=== PATIENT | male | born 1990 | race Two or more races ===

== ENCOUNTER 2021-08-23 22:49 | Emergency (ER) | payer SELFPAY ==
[~2021-08-23] VITALS: Ht 167.6 cm; Wt 68.9 kg
[2021-08-24] MEDS ORDERED: LORazepam 2MG/ML-1ML VIAL IM ONE
[2021-08-24 00:01] LABS: Basophils # (auto) 0.1 10 ^3/uL (0-0.2); Basophils % (auto) 1.2 % (0.0-2.0); Eosinophils # (auto) 0 10 ^3/uL (0-0.8); Eosinophils % (auto) 0.3 % (0.0-7.0); Hematocrit 48.4 % (41.0-53.0); Hemoglobin 17.4 g/dL (13.5-17.5); Lymphocytes # (auto) 1.2 10 ^3/uL (0.4-5.4); Lymphocytes % (auto) 15.5 % (10.0-50.0); Mean Corpuscular Hemoglobin 30.6 pg (28.0-32.0); Mean Corpuscular Hgb Conc. 35.8 g/dL (32.0-36.0); Mean Corpuscular Volume 85.4 fL (80.0-100.0); Monocytes # (auto) 0.5 10 ^3/uL (0-1.3); Monocytes % (auto) 5.8 % (0.0-12.0); Neutrophils % (auto) 77.2 % (37.0-80.0); Nucleated Red Blood Cells % 0.9 %; Red Blood Cells 5.67 10^6/uL (4.5-5.90); Red Cell Distribution Width 12.1 % (11.8-14.3); White Blood Cell 7.8 10^3/uL (4.4-10.8)
[2021-08-24 00:20] LABS: Salicylate < 1.7 mg/dL (2.8-20.0)
[2021-08-24 00:21] LABS: Chloride 101 mmol/L (98-107); Potassium 3.1 mmol/L (3.5-5.1); Sodium 136 mmol/L (136-145)
[2021-08-24 00:22] LABS: Acetaminophen < 2.0 ug/mL (10-30)
[2021-08-24 00:29] LABS: Alanine Aminotransferase 33 U/L (16-61); Albumin 4.8 g/dL (3.4-5.0); Alkaline Phosphatase 70 U/L (45-117); Anion Gap 13 (5-15); Aspartate Aminotransferase 15 U/L (15-37); BUN/Creatinine Ratio 9.9; Bilirubin, Total 0.8 mg/dL (0.2-1.0); Blood Alcohol < 3.0 mg/dL (0-5); Blood Urea Nitrogen 10 mg/dL (7-18); Calcium 9.9 mg/dL (8.5-10.1); Carbon Dioxide 22 mmol/L (21-32); GFR African American 112 mL/min; GFR Non-African American 92 mL/min; Glucose 128 mg/dL (74-106); Total Protein 8.5 g/dL (6.4-8.2)
[2021-08-24] MEDS ORDERED: HALOPERIDOL LACTATE 5 MG/ML INJ VIAL IM ONE (00:30)
[2021-08-24 05:00] VITALS: BP 132/74
== END 2021-08-24 05:25 | disposition home or self-care (01) ==
LOC: EDBD 22:49 → ER 22:52
DX: F15.10 Other stimulant abuse, uncomplicated (principal)
CPT/HCPCS: 36415; 80053; 80320; 80329; 85025; 93005; 96372; 99284; J1630; J2060